=== PATIENT | female | born 1980 | race Caucasian/White ===

== ENCOUNTER 2017-09-12 05:39 | Day surgery (SDC) | payer OTHER ==
[2017-09-12] MEDS ORDERED: CEFAZOLIN 2 GM/50 ML (PMX) 50 ML IVPB (06:30)
[2017-09-12] MEDS: LACTATED RINGER'S 1,000 ML IV* (06:37)
[2017-09-12] MEDS ORDERED: LIDOCAINE 2% (SDV) 5 ML INJ (07:00)
[2017-09-12] MEDS ORDERED: FENTAnyl 50 MCG/ML VIAL (07:46)
[2017-09-12] MEDS ORDERED: MIDAZOLAM 1 MG/ML 2 ML INJ (07:47)
[2017-09-12] MEDS ORDERED: CEFAZOLIN 1 GM INJ (08:09)
[2017-09-12] MEDS ORDERED: ROCURONIUM 50 MG INJ (08:09)
[2017-09-12] MEDS ORDERED: PROPOFOL 20 ML (08:09)
[2017-09-12] MEDS ORDERED: SUGAMMADEX SODIUM 200 MG/2 ML VIAL IV (08:09)
[2017-09-12] MEDS ORDERED: SUCCINYLCHOLINE CHLORIDE 100 MG/5 ML SYG IV (08:09)
== END 2017-09-12 10:30 | disposition home or self-care (01) ==
LOC: SDS 05:39
DX: D25.9 Leiomyoma of uterus, unspecified (principal); N92.1 Excessive and frequent menstruation with irregular cycle; I49.8 Other specified cardiac arrhythmias
CPT/HCPCS: 58558; 71045; 88305; 93005